=== PATIENT | male | born 1975 | race Caucasian/White ===

== ENCOUNTER 2017-03-19 09:15 | Inpatient (IN) | payer MEDICARE ==
[2017-03-19] VITALS (15 sets, daily range): BP systolic 122–166; BP diastolic 62–88; PULSE 61–86; RESP 14–19; O2SAT 95–99
[~2017-03-19] VITALS: Ht 177.8 cm; Wt 82.4 kg
--- NOTE | 2017-03-19 09:19 | ED.REPORT ---
HPI-General Illness Date of Service Mar 19, 2017 ED Provider: The patient is a 41 year old male with history of anxiety, depression, and chronic back pain s/p multiple surgeries, who was sent to the emergency department by Dr. Paul for an abnormal rhythm. The patient is currently undergoing evaluation by Dr. Paul for syncope. He has recently been wearing a Holter Monitor. He sent his recordings this morning and shortly after was contacted by Dr. Paul who directed him to come to the emergency department. Dr. Paul called prior to the patient's arrival reporting the patient had an episode Torsades de pointe on the recording. The patient did not notice any symptoms last night. He did have an episode 2 days ago where he was very lightheaded, weak, nauseous, and diaphoretic. He had to lay on the floor in a dressing room for 45 minutes before he was able to get up and drive home. During the episode he noticed that his pulse was very low. Over the last several days the patient has noticed extreme fatigue. He denies any chest pain or palpitations. He denies family history of sudden cardiac . He is currently taking citalopram 20 mg daily and lamotrigine. He was previously taking propranolol and tizanidine but stopped taking these because he thought it was causing some of his symptoms. Nursing Notes Stated Complaint: HEART MONITOR, IRREGULAR HEART RHYTHM Nursing Notes Reviewed: Yes Allergies: Coded Allergies: diphenhydramine (Verified Allergy, Mild, panic, 03/19/17) anxiety Uncoded Allergies: FLOROQUINOLONES (Allergy, Severe, 03/19/17) Jens ceballos. never taken Scheduled Citalopram (Citalopram) 20 Mg Tablet 20 MG PO HS Lamotrigine (Lamotrigine) 25 Mg Tablet 25 MG PO DAILY Lamotrigine (Lamotrigine) 25 Mg Tablet 50 MG PO HS Trazodone (Trazodone) 50 Mg Tablet 50 MG PO HS Scheduled PRN Albuterol Sulfate (Ventolin HFA Inhaler) 200 Puff/18 Gm Inhaler 2 PUFF PRN For Shortness of Breath Cyclobenzaprine (Cyclobenzaprine) 10 Mg Tablet 10 MG PO PRN muscle spasms oxyCODONE (oxyCODONE) 5 Mg Tablet 5 MG PO Q4Hrs PRN PRN For Pain General Time Seen by MD: 09:19 Chief Complaint Other (abnormal rhythm) Hx Obtained From: Patient, Spouse Arrived By: Walk-in Sudden in Onset?: Yes Symptom Duration: 1 - 15 minutes Severity: Current: No pain currently Severity: Maximum: No pain Recent Healthcare: No recent hospitalization, Recent doctor visit, Prior workup Similar Sx Previous: Yes Past Medical History Past Medical History Chronic back pain Anxiety Depression Past Surgical History Multiple back surgeries Neck surgery Family History Noncontributory Smoking History Never Smoker Social History Alcohol Use: Denies alcohol use Drug Use: THC Other Social History: Good social support, Local resident Ambulatory Status Independent Review of Systems +bradycardia Full Review of Systems Constitutional: Reports: Fatigue, Weakness - generalized Cardiovascular: Denies: Chest pain, Palpitations GI: Reports: Nausea Skin: Reports Diaphoresis Neurologic: Reports: Lightheaded, Syncope Complete sys rev & neg: except as marked. Physical Exam Vital Signs Vital Signs Date Time Temp Pulse Resp B/P Pulse Ox O2 Delivery O2 Flow Rate FiO2 03/19/17 12:31 77 17 140/72 97 Room Air 03/19/17 11:09 73 16 151/70 96 Room Air 03/19/17 09:21 77 14 166/81 99 Room Air Initial VS: Reviewed Head / Eyes: Atraumatic, Normocephalic, PERRL ENT: Mucous membranes moist, Conjunctiva normal, No scleral icterus Respiratory: Breath sounds normal, Clear to auscultation, No respiratory distress Cardiovascular: Regular rate & rhythm, Heart sounds normal, Intact distal pulses Abdomen / GI: Soft, Non-tender, No guarding, No rebound, No distention Lymphatic: No lymphadenopathy Extremities: Vascular intact, Neuro intact, No swelling, No tenderness Skin: Warm, Dry, No cyanosis Neurologic: Alert, Oriented, Nonfocal Psychiatric: Mood/affect normal, Behavior normal, Normal thought content General/Constitutional: Awake, Alert, No acute distress, Cooperative Neck: Atraumatic, Supple, No meningismus, Full range of motion, No swelling, Non-tender, No masses, No JVD Lower Extremity / Pelvis / MS: Neurologic intact, Vascular intact, No edema Interpretation & Diagnostics Lab Results Interpretation Result Diagram: 03/19/1728 03/19/17 0928 Test 03/19/17 09:28 03/19/17 11:34 White Blood Count 7.8th/mm3 (3.8-10.1) Red Blood Count 4.85mil/mm3 (4.40-5.80) Hemoglobin 14.9g/dL (13.8-17.2) Hematocrit 43.2% (41.0-50.0) Mean Corpuscular Volume 89.1fL (81-100) Mean Corpuscular Hemoglobin 30.7pg (27.0-35.0) Mean Corpuscular Hemoglobin Concent 34.5% (32.0-37.0) Red Cell Distribution Width 12.9% (12.3-15.4) Platelet Count 207bil/L (150-400) Neutrophils (%) (Auto) 60.1% (40-74) Lymphocytes (%) (Auto) 23.8% (14-46) Monocytes (%) (Auto) 12.9% (4-12) Eosinophils (%) (Auto) 2.7% (0-5) Basophils (%) (Auto) 0.4% (0-3) Sodium Level 140mEq/L (134-144) Potassium Level 3.8mEq/L (3.5-5.2) Chloride Level 102mEq/L (97-108) Carbon Dioxide Level 23mmol/L (18-29) Blood Urea Nitrogen 21mg/dL (6-20) Creatinine 1.03mg/dL (0.76-1.27) Estimat Glomerular Filtration Rate 85mL/min (>59) Glucose Level 92mg/dL (60-99) Calcium Level 9.7mg/dL (8.5-10.1) Magnesium Level 2.2mg/dL (1.6-2.6) Total Bilirubin 0.3mg/dL (0.0-1.2) Aspartate Amino Transf (AST/SGOT) 24U/L (0-50) Alanine Aminotransferase (ALT/SGPT) 15U/L (0-44) Alkaline Phosphatase 65U/L (25-150) Troponin T 0.010ug/L (0.0-0.011) Pro-B-Type Natriuretic Peptide 19.16pg/mL (0-86) Total Protein 7.6g/dL (6.4-8.4) Albumin 4.6g/dL (3.4-5.0) Thyroid Stimulating Hormone (TSH) 3.210uIU/mL (0.450-4.500) Hold Urine Received (Received) ECG Interpretation ECG Interpretation: Normal sinus rhythm with a rate of 84 QTc 453 Time: 09:23 Interpreted by: ED physician X-Ray Chest Interpretation Chest Xray Interpretation: IMPRESSION: No acute disease Dictated by: Deni Smith M.D. on 03/19/2017 at 9:52 Interpretation / Wet Read by: Interpret - Radiologist Re-Eval/Medical Decision Med Decision/Clinical Course Patient presents to the ER after reportedly having an episode of polymorphic ventricular tachycardia at home as documented on a Holter monitor. Patient is currently asymptomatic but upon arrival he is brought to a major medical room, IV, telemetry monitoring and defibrillator pads are placed. Cardiology is promptly at the bedside and has evaluated the patient. The patient will be taken to the laborer drying department this afternoon. Source of Hx: Old records, Family, Private physician Time of Eval: 09:28 Re-Evaluation/Progress Note: Dr. Paul is here to evaluate the patient. Consultation : Referral / Consult Name: Angel Paul MD Consulted With: Cardiology Call Returned at: 09:40 Electric Freight Car Operator: Agrees with eval, Agrees with plan, Requested laborer drying department, Accepts admit Note: Will take the patient to the laborer drying department at 1500 today. Counseled Regarding: Diagnosis, Lab results, Need for admission Discharge & Departure Primary Impression: Torsades de pointes Disposition: ADMITTED TO HOSPITAL (To laborer drying department) Discharge Condition All VS Reviewed: Yes Condition: Stable Referrals: Angel Paul MD Scribe Attestation Portions of this note were transcribed by Soni Chicas. I, Dr. Marquez personally performed the history, physical exam and medical decision-making; I reviewed and confirmed the accuracy of the information in the transcribed note. Signed by: Nicanor Valenzuela, 03/19/17 at 1035. copies to: Angel Paul MD, Timothy S DO Mar 19, 2017 09:19 Soni Chicas Mar 19, 2017 09:29
[2017-03-19 09:39] LABS: BASOPHILS % (AUTO) 0.4 % (0-3); EOSINOPHILS % (AUTO) 2.7 % (0-5); MONOCYTES % (AUTO) 12.9 % (4-12); Mean Corpuscular Hemoglobin 30.7 pg (27.0-35.0); Mean Corpuscular Volume 89.1 fL (81-100); NEUTROPHILS % (AUTO) 60.1 % (40-74); Platelet Count 207 bil/L (150-400)
--- NOTE | 2017-03-19 09:55 | DRSVH ---
PROCEDURE: X-RAY CHEST ONE VIEW, PORTABLE ([id number]) INDICATIONS: arrhythmia TECHNIQUE: One view of the chest was acquired. COMPARISON: None. FINDINGS: Surgical changes and devices: None. Lungs and pleura: No pleural effusions or pneumothorax. Lungs are clear. Mediastinum: Mediastinal contours appear normal. Heart size is normal. Bones and chest wall: No suspicious bony lesions. Overlying soft tissues appear unremarkable. IMPRESSION: No acute disease Dictated by: Deni Smith M.D. on 03/19/2017 at 9:52 Approved by: Deni Smith M.D. on 03/19/2017 at 9:53
[2017-03-19] MEDS ORDERED: LORazepam 1 mg Tablet PO ONE (10:05)
[2017-03-19 10:11] LABS: TROPONIN T 0.01 ug/L (0.0-0.011)
[2017-03-19] MEDS ORDERED: ALBU18HF (10:21)
[2017-03-19] MEDS ORDERED: LAMO25TA PO ×2 (10:21→10:23)
[2017-03-19] MEDS ORDERED: CITA20TA11 PO (10:21)
[2017-03-19 10:22] LABS: Magnesium 2.2 mg/dL (1.6-2.6)
[2017-03-19] MEDS ORDERED: TRAZ-115 PO (10:23)
[2017-03-19] MEDS ORDERED: OXYC5TAB72 PO (10:23)
[2017-03-19] MEDS ORDERED: CYCL10TA9 PO (10:24)
[2017-03-19] MEDS ORDERED: Ondansetron 2 mg/mL 2 mL Inj IVPUSH PRN ×2 (10:25→14:30)
[2017-03-19] MEDS ORDERED: 0.9% Sodium Chloride 1,000 ML IV ONE (11:54)
[2017-03-19] MEDS ORDERED: Heparin 1,000 Units/500 mL NS Premix IV ONE (13:31)
[2017-03-19] MEDS ORDERED: Heparin 10,000 Unit/1,000 mL NS Premix IV ONE (13:31)
[2017-03-19] MEDS ORDERED: fentaNYL-PF 50 mCg/mL 2 mL Inj ONE (13:44)
[2017-03-19] MEDS ORDERED: Atropine 1 mg/10 mL (Code) Syringe ONE (14:08)
[2017-03-19] MEDS ORDERED: 0.9% Sodium Chloride 250 ML IV PRN (14:26)
[2017-03-19] MEDS ORDERED: 0.9% Sodium Chloride 1,000 ML IV PRN (14:26)
[2017-03-19] MEDS ORDERED: Ondansetron 2 mg/mL 2 mL Inj ONE (14:27)
[2017-03-19] MEDS ORDERED: Atropine 1 mg/10 mL (Code) Syringe IVPUSH PRN (14:30)
[2017-03-19] MEDS ORDERED: HYDROcodone-APAP 5-325 mg Tablet PO PRN (14:30)
--- NOTE | 2017-03-19 15:27 | CS94 ---
[address] [address] DIAGNOSTIC CARDIAC CATHETERIZATION PATIENT: ELLIOTT PERERA : 1975 MR#: [id number] ADMIT: 03/19/2017 JOB ID: [id number] SERVICE DATE: 03/19/2017 PROCEDURE: 1. Retrograde left heart catheterization. 2. Selective left and right coronary angiography. 3. Left ventricular hemodynamics. INDICATION: Syncope, polymorphic VT. CONSENT: The patient was explained the risks, benefits, and alternatives of the procedure. Informed signed consent was obtained and placed in the chart. PROCEDURE: The patient was brought to the cath laboratory and placed on the cath table. Both groins were prepped and draped in the usual sterile manner. One percent lidocaine was infiltrated in the right groin area. A micropuncture needle was used to access the right femoral artery. Using standard technique a 6-Syriac arterial sheath was placed in the right femoral artery. Subsequently FL4 catheter was used to engage the left main coronary artery. Left coronary angiography was performed. Coronary angiography was performed. Patient became extremely bradycardic with a heart rate of 20 and a long pause. The catheter was withdrawn. Patient was asked to cough and he regained his baseline heart rate of sinus rhythm. Rare PVCs were noted at that time. Similarly, FR4 catheter was used to engage the right coronary artery. Multiple views of the right coronary were obtained in multiple projections. A pigtail catheter was advanced over the guidewire, placed in the left ventricle. Left ventricular hemodynamics was obtained. A pullback maneuver was performed to assess for any gradient between the left ventricle and aorta. Subsequently, right groin angiography was performed. A StarClose closure device was deployed successfully. The patient was taken out of the cath laboratory in stable condition. COMPLICATIONS: Transient sinus bradycardia with contrast injection. BLOOD LOSS: Less than 10 cc. HEMODYNAMICS: The left ventricular end-diastolic pressure was 12-15 mmHg. There was no left ventricular aortic gradient. CORONARY ANGIOGRAPHY: The left main coronary artery is angiographically normal. The LAD and the branches of the LAD are angiographically normal. The left circumflex coronary artery is angiographically normal. The right coronary artery is a dominant vessel and is angiographically normal. IMPRESSION: 1. Angiographically normal coronaries. 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 2. Left ventricular end-diastolic pressure within normal limits. MTDD
[2017-03-19] MEDS ORDERED: Alum-Mag Hydrox-Simeth 30 mL Suspension PO PRN (16:10)
[2017-03-19] MEDS: Sodium Chloride LOK Flush 10 mL Syringe IVFLUSH SCH (16:30)
--- NOTE | 2017-03-19 16:40 | NUR ---
admit [facility] pt arrived on [facility] accompanied by family/friend with all belongings, on RA, IV infusing, back pain 02/13, A&Ox3. Care continues
--- NOTE | 2017-03-19 16:46 | NUR ---
NIECY PT RECEIVED FROM AFTER SCHOOL PROGRAM COORDINATOR AT 1500. RIGHT GROIN WITH STARCLOSE AND OPSITE, GAUZE DRSG HAS REMAINED SOFT, NON TENDER, NO BLEEDING OR HEMATOMA NOTED. PT IS AWARE OF ACTIVITY RESTRICTIONS AND BEDREST. RIGHT D/P 2+. NS AT 100ML/HR AND PT IS TAKING PO FLUIDS AND MEAL WITHOUT DIFFICULTY. PT AND HIS NURSING CARE WERE TRANSFERRED TO ROOM 3008 AT 1630. RN TO RN BEDSIDE HAND OFF WAS DONE WITH EMELI Goel RN. TELE PLACED AND CONFIRMED WITH SENIOR JAVA UI DEVELOPER.
--- NOTE | 2017-03-19 18:06 | HP ---
[address] [address] HISTORY AND PHYSICAL PATIENT: ELLIOTT PERERA : 1975 MR#: [id number] ADMIT: 03/19/2017 JOB ID: [id number] HISTORY OF PRESENT ILLNESS: The patient is a delightful 41-year-old male who was referred to our office on February 17, 2017 for evaluation of syncope. He saw Dr. Paul. The patient complained of feeling lightheaded and having palpitations prior to his syncopal episodes. The symptoms began about one month prior to his first appointment. They lasted approximately 15 seconds and seemed to occur intermittently. He noted at the that the symptoms typically occurred when bending forward. Associated symptoms included visual changes. The patient does not report a history of alcoholism, history of coronary artery disease, confusion, congenital heart disease, dilated cardiomyopathy, drug abuse, fatigue, head trauma, headaches, ischemic cardiomyopathy, myocardial infarction, seizure-like activity, slurred speech, or history of stroke and weakness. He notes his visual changes are in the right eye. He has a history of Radha-Danlos syndrome. Given his symptoms, Dr. Paul ordered a 30-day event monitor. That study revealed that he was having episodes of torsades de Pointe, which is a life-threatening arrhythmia. As such Dr. Paul advised him to go to the emergency department at [facility] where he was admitted to the hatchery laborer to evaluate the state of his coronary arteries. A left heart catheterization was done. That study revealed that his coronary arteries were clean. After the left heart catheterization was completed, it was decided that he would be admitted to the hospital for evaluation and observation. REVIEW OF SYSTEMS: The patient reports he has gained weight recently. He is positive for visual changes, particularly in the right eye. He also reports lightheadedness, decreased sensation, numbness in the extremities, muscle weakness, and syncope. He is negative for fatigue and weakness. Negative for confusion, headache, seizure-like activity, slurred speech, or seizures. He reports he has chronic joint and back pain and joint deformity, muscle cramps, and muscle spasms, for which he takes pain medications. PHYSICAL EXAMINATION: When I evaluated the patient he was alert and oriented and well nourished, well developed physique. His eyes were bilaterally normal. Conjunctivae were bilaterally normal. Sclerae bilaterally normal. Corneas bilaterally normal. Pupils were bilaterally equal and reactive to light. The irises were bilaterally normal. On inspection of the neck, the neck was normal to palpation and inspection. There are no masses in the area of the thyroid. There was no jugular vein distention. Auscultation of lungs revealed the lungs were clear bilaterally. Equal bilateral lung sounds. There are no wheezes or rhonchi, and rales were absent. Auscultation of the heart revealed normal S1 and S2, without murmurs, clicks, or rubs. The abdomen was soft and nontender. Skin was warm and dry. There is no overall muscle deformity that I could see. MEDICATIONS: 1. Cyclobenzaprine 10 mg tablets, one tablet three times every day. 2. Lexapro 10 mg tablets, one tablet every day. 3. Zofran one 4 mg tablet, repeated every 30 minutes as needed for nausea. 4. Hydrocodone 5 mg tablets every two days as needed for pain. 5. Trazodone 50 mg tablets, one tablet at bedtime to help him sleep. 6. Ventolin HFA 90 mcg actuation aerosol inhaler, two puffs every 4-6 hours as needed for shortness of breath. ALLERGIES: CIPROFLOXACIN, DIPHENHYDRAMINE, AND GABAPENTIN. FAMILY HISTORY: There is no relevant family history. SOCIAL HISTORY: The patient does not smoke. He drinks moderate amounts of alcohol. He denies any use of recreational drugs. ASSESSMENT AND PLAN: Torsades de Pointe. The patient has a history of syncopal episodes. Thirty day event monitor revealed that he has Torsades de Pointe which is a life-threatening arrhythmia. At this point that it is important that he remain off of his home medications because those medications may cause long QT syndrome which can facilitate the arrhythmia. Dr. Ellison will evaluate the patient and he will make recommendations. For now he will stay overnight in the hospital until Dr. Ellison evaluates the patient and makes recommendations.
[2017-03-19 18:39] LABS: Magnesium 2.1 mg/dL (1.6-2.6)
[2017-03-20] VITALS (8 sets, daily range): BP systolic 119–145; BP diastolic 74–99; PULSE 57–74; RESP 16–18; O2SAT 94–99
[2017-03-20] MEDS: Sodium Chloride LOK Flush 10 mL Syringe IVFLUSH SCH ×3 (00:11→16:30)
--- NOTE | 2017-03-20 05:57 | NUR ---
pain: pt c/o pain in incision site in right groin, and back. pt medicated with prn oxycodone and prn morphine. pt able to report some relief. Tele SR barragan. will continue to monitor.
--- NOTE | 2017-03-20 11:29 | PROG NOTE ---
[address] [address] PROGRESS NOTE PATIENT: ELLIOTT PERERA : 1975 MR#: [id number] ADMIT: 03/19/2017 JOB ID: [id number] DATE: 03/20/2017 SUBJECTIVE: This is hospital day two, after being admitted for the evaluation and treatment of torsades de pointes and after having a left heart catheterization done. The patient is resting comfortably. There have been no concerning arrhythmias. Vital signs are stable. Lungs are clear to auscultation. Auscultation of the heart reveals normal S1 and S2 without murmurs, clicks or rubs. Abdomen is soft and nontender. The catheter entry site of the right groin is tender to palpation. However, the site is clean, dry and intact without signs of infection. There is no bleeding. The lower extremities are warm and dry. There are 2+ dorsalis pedis and posterior tibialis pulses bilaterally. ASSESSMENT AND PLAN: The patient will be n.p.o. Wednesday night. An implantable cardiac defibrillator will be put in place on Wednesday.
--- NOTE | 2017-03-20 15:45 | NUR ---
Social Work Note - Initial Assessment Jc River is a 41 yr old admitted for irregular heart rhythm. EMR reviewed: Pt has Medicare insurance, his PCP Dr Contreras. No LTC no [facility]. Readmit score is 2. See attached initial assessment. SECURITIES BROKER met with pt - introduced d/c planning and explained SW role. Pt lives at home in [place] with a room mate. He is independent at baseline, no DME use. He states that he is going to have an ICD placed on Wednesday. He hopes to return home with his room mate and anticipates that he will continue at his previous level of functioning. Pt denies any needs. Pt does not have DPOA - SECURITIES BROKER provided paperwork as well as a D/C planning checklist. SECURITIES BROKER will follow if needs arise. Plan: Home with family in [facility]. No needs identified. BRADLY James Addendum: 03/20/17 at 1552 by TEO ESTRADA SS Amended: Links added.
[2017-03-20] MEDS: Polyethylene Glycol (PEG) 17 Gm Powder PO PRN (21:05)
[2017-03-21] VITALS (9 sets, daily range): BP systolic 116–139; BP diastolic 75–89; PULSE 64–89; RESP 18; O2SAT 95–98
[2017-03-21] MEDS: Sodium Chloride LOK Flush 10 mL Syringe IVFLUSH SCH ×3 (00:39→16:25)
--- NOTE | 2017-03-21 10:42 | PROG NOTE ---
[address] [address] PROGRESS NOTE PATIENT: ELLIOTT PERERA : 1975 MR#: [id number] ADMIT: 03/19/2017 JOB ID: [id number] DATE: 03/21/2017 SUBJECTIVE: This is hospital day 3 after being admitted for evaluation and treatment of torsades de Pointe. The patient is resting comfortably. There were no concerning arrhythmias in the last 24 hours. PHYSICAL EXAMINATION: Last blood pressure was 136/88, pulse is 89, respirations 18, SpO2 is 97% on room air. Lungs are clear to auscultation bilaterally. Auscultation of heart reveals normal S1 and S2 without murmurs, clicks, or rubs. Abdomen is soft, nontender, and the catheter entry site after his left heart catheterization is tender to palpation, however the site is clean, dry, and intact without signs of infection. There is no bleeding. Lower extremities are warm and dry. There is +2 pulses at the dorsalis pedis and posterior tibialis arteries bilaterally. ASSESSMENT AND PLAN: The patient will be n.p.o. tonight. An implantable cardiac defibrillator will be put in place on Wednesday.
--- NOTE | 2017-03-21 11:31 | NUR ---
Social Work Note - Multidisciplinary rounds Per Rounds - Pt is scheduled for cardiac intervention tomorrow. Pt will remain in the hospital for 1-2 more days after placement. AGRICULTURAL TECHNICAL OFFICER will continue to follow. BRADLY James
--- NOTE | 2017-03-21 11:31 | NUR ---
CODING SUPPORT SPECIALIST witnessed [facility]'s signature LJ JamesSW
--- NOTE | 2017-03-21 14:36 | NUR ---
Pain Patient had complaints of 4/10 pain to back and groin area. Patient was offered pain medication. Patient agreed. Patient administered Roxicodone PRN as ordered. Pain medication was effective and decreased pain to 2/10 when reassessed 20 minutes later.
[2017-03-21] MEDS: Polyethylene Glycol (PEG) 17 Gm Powder PO PRN (19:38)
[2017-03-22] VITALS (15 sets, daily range): BP systolic 116–136; BP diastolic 54–89; PULSE 59–78; RESP 10–25; O2SAT 95–98
[2017-03-22] MEDS: Sodium Chloride LOK Flush 10 mL Syringe IVFLUSH SCH ×3 (00:30→17:14)
--- NOTE | 2017-03-22 05:09 | NUR ---
NOC/NPO Explained plan to be NPO after midnight for the upcoming defibrilator implant. Pt verbalizes understanding. Denies any chest pain, sob. Has been having moderate back and abd pain but is controlled with morphine. Will continue to monitor.
[2017-03-22] MEDS ORDERED: 0.9% Sodium Chloride 250 ML ONE (11:58)
[2017-03-22] MEDS ORDERED: Heparin 10,000 Unit/1,000 mL NS Premix IV ONE (11:58)
[2017-03-22] MEDS ORDERED: Bupivacaine-MPF 0.5% 30 mL Inj ONE (11:58)
[2017-03-22] MEDS ORDERED: 0.9% Sodium Chloride 1,000 ML ONE (11:58)
--- NOTE | 2017-03-22 12:23 | NUR ---
off floor pt transported to lab support technician for ICD placement. pt transported in bed with dog and roommate. teletypesetter monitor notified. pt premedicated with Oxycodone and Lorazepam. Two IVs in place and pt has gone to the bathroom.
[2017-03-22] MEDS ORDERED: Vancomycin 1,000mg/200 mL NS IV ONE ×2 (12:30→12:41)
[2017-03-22] MEDS ORDERED: fentaNYL-PF 50 mCg/mL 2 mL Inj ONE ×3 (12:43→13:14)
[2017-03-22] MEDS ORDERED: Water for Injection 50 ML IV ONE (12:54)
[2017-03-22] MEDS ORDERED: Vancomycin 1,000 mg Inj ONE (12:54)
[2017-03-22] MEDS ORDERED: Methohexital 10 mg/mL 50 mL Inj ONE (13:40)
[2017-03-22] MEDS: 0.9% Sodium Chloride 1,000 ML IV SCH (14:09)
--- NOTE | 2017-03-22 14:15 | NUR ---
POST PROCEDURE NOTE RECEIVED FROM COTTON TIPPER. SEE FLOW SHEETS
--- NOTE | 2017-03-22 14:42 | DRSVH ---
PROCEDURE: X-RAY CHEST ONE VIEW, PORTABLE ([id number]) new leads placed TECHNIQUE: One view of the chest was acquired. COMPARISON: [facility], CR, XR CHEST 1VW (PORTABLE), 03/19/2017, 9:18. FINDINGS: Surgical changes and devices: Dual-lead cardiac pacer placed in the interval since the prior examinat ion. Lungs and pleura: No pleural effusions or pneumothorax. Lungs are clear. Mediastinum: Mediastinal contours appear normal. Heart size is normal. Bones and chest wall: No suspicious bony lesions. Overlying soft tissues appear unremarkable. IMPRESSION: Status post placement of cardiac pacer. Dictated by: Janene Sanabria MD, PhD on 03/22/2017 at 14:39 Approved by: Janene Sanabria MD, PhD on 03/22/2017 at 14:40
--- NOTE | 2017-03-22 15:18 | PROG NOTE ---
[address] [address] PROGRESS NOTE PATIENT: ELLIOTT PERERA : 1975 MR#: [id number] ADMIT: 03/19/2017 JOB ID: [id number] DATE: 03/22/2017 IDENTIFICATION: The patient is a pleasant, 41-year-old man with a structurally normal heart by echocardiography and normal epicardial coronary artery disease by recent angiography. He was admitted to the hospital late last week when his 30-day event monitor showed self-terminating but persistent torsade. He was being evaluated by Dr. Paul as an outpatient for repeated syncopal episodes, which he sustained at home, unprovoked, and without antecedent symptoms. He ultimately had an echocardiogram which returned normal and EKGs which were unremarkable in terms of intervals. He had sinus rhythm with normal intervals and no QT prolongation. He therefore wore a 30-day event monitor and on monitor was called in from home due to two episodes of torsade that lasted several seconds but ultimately self-terminated. In the hospital, he underwent coronary angiography which failed to reveal any significant epicardial disease. I am being asked to comment on secondary prevention of cardiac arrest. He feels well but he has had multiple syncopal and near-syncopal episodes in the last few months. He has Radha-Danlos syndrome. He has no evidence of vascular involvement. He denies any chest pain, pressure, discomfort. His episodes occurred at home and were not preceded with any chest pain, pressure, discomfort, dyspnea or palpitations. IMPRESSION/RECOMMENDATION: The patient is a pleasant, 41-year-old man with a structurally normal heart, identified to have torsade de pointes with repeat syncopal episodes. I recommended secondary prevention implantable cardioverter-defibrillator implant. I discussed the implant with him and his significant other at length including risks and benefits. Ultimately, he wishes to proceed. PLAN: Dual-chamber ICD implantation with defibrillation threshold testing. Thank you very much for allowing me to participate in the care of this patient. Please call with any questions. I spent 1 hour with the patient coordinating care, reviewing his chart. Greater than 50% of the time was spent in counseling.
--- NOTE | 2017-03-22 16:15 | NUR ---
TRANSFERED TO [facility] [place] [place], REPORT GIVEN
--- NOTE | 2017-03-22 16:34 | NUR ---
back from ICD placement pt states that he is having slight pain at the surgical site 11/13. He would like to wait for pain medication. pt also states that he is feeling a little nauseated and asks for crackers and 7-up. pt will call when he would like pain medication.
--- NOTE | 2017-03-22 22:21 | OP ---
[address] [address] OPERATIVE REPORT PATIENT: ELLIOTT PERERA : 1975 MR#: [id number] ADMIT: 03/19/2017 JOB ID: [id number] DATE OF SURGERY: 03/22/2017 PREOPERATIVE DIAGNOSIS(ES): 1. Torsade de Pointe. 2. Syncope. POSTOPERATIVE DIAGNOSIS(ES): 1. Torsade de pointe. 2. Syncope. PROCEDURES PERFORMED: 1. Dual-chamber implantable cardioverter-defibrillator implantation. 2. Defibrillation threshold testing (induction of ventricular fibrillation via device). 3. Fluoroscopy. SURGEON: Iban Ellison MD. PROJECT SPECIALIST: Carrillo Sullivan. IMPLANTED DEVICE: 1. [employer] pulse generator, model CD 2411, 36 q, serial #[id number]. 2. Right atrial lead [employer] 2088 TC 52 cm, serial #[id number]. 3. RV lead [employer] , 4712 Q, 58 cm, serial #[id number]. ANESTHESIA: Bolus dosing of Versed and fentanyl were utilized for an appropriate level of sedation and Brevital was utilized for defibrillation threshold testing. INDICATION: The patient is a pleasant 41-year-old man with a structurally normal heart admitted with syncope and torsade de pointe without reversible cause. After discussion of risks and benefits of ICD implantation for secondary prevention of cardiac arrest, he opted to proceed. PROCEDURAL DESCRIPTION: Following informed consent, the patient was taken to the EP laboratory in a fasting, nonsedated state where he was prepped in usual sterile fashion. The left infraclavicular region was infiltrated with 40 cc of a 50/50 mixture of bupivacaine and lidocaine. Once adequate anesthesia had been achieved, a 3 cm transverse incision without complications was performed 2 cm below the left clavicle. Dissection was carried down to the pectoralis fascia and a pocket was then fashioned using a combination of electrocautery and blunt dissection. Once adequate anesthesia had been achieved, access was gotten to the left axillary vein over the first rib twice with a micropuncture needle to deploy two 0.035, 3 mm J guidewires. Over the first of these, a 7-[place] tear-away sheath was advanced. Once the guidewire was removed, an active fixation lead was advanced to the RV outflow tract and ultimately the RV apex. The lead was affixed in position using associated active fixation screw. It was connected to the external analyzer and demonstrated appropriately sensed R waves, impedance. Capture threshold was checked to 10 V and there was no evidence of diaphragmatic stimulation. Attention was now placed on his right atrial lead. Over the other previously deployed J guidewire, a 6-[place] tear-away sheath was advanced. Once the guidewire was removed, an active fixation lead was advanced to the right atrial appendage. It was affixed in position using associated active fixation screw and was connected to the external analyzer and demonstrated appropriately sensed P waves, impedance. Capture threshold was checked to 10 V and there was no evidence of diaphragmatic stimulation. Once the position and redundancy of both leads had been confirmed in multiple fluoroscopic views, the leads were anchored to the prepectoralis fascia using the associated anchoring sleeves and two Ethibond sutures. The pocket was then copiously irrigated with antibiotic solution. The leads were connected to a generator, the generator was placed in the pocket and affixed to the floor of the pocket using 1-0 Ti-Cron suture. The incision was then closed with running layers of absorbable suture. The wounds was dressed with skin adhesive and small dressing. At the end of the procedure, the needle, sponge and instrument counts were all correct. Defibrillation threshold testing was performed next. After adequate sedation with Brevital, the patient was placed into ventricular fibrillation with the DC protocol on the [employer] programmer to induce VF at a cycle length of 150 msec. The device sensed appropriately, converting the patient to atrial fibrillation with a 25 joule shock. Charge time was 5 seconds. Impedance was 69 ohms. The atrial fibrillation did not terminate. As such, the patient was converted back to sinus rhythm with an external 200 joule biphasic synchronized shock after confirmation of adequate sedation. COMPLICATIONS: None. ESTIMATED BLOOD LOSS: Negligible. DEVICE MEASURED DATA: Right atrial lead greater than 5 mV, 7 and 10 ohms, 0.5 V at 0.5 msec. RV lead 11.7 mV, 630 ohms, 0.75 V at 0.5 msec. FINAL PROGRAM PARAMETERS: 1. DDD 60-130 beats per minute. 2. VF zone at 200 beats per minute with ATP during charge from max output shocks. 3. VT monitor zone at 150 beats per minute. 4. VT 1 zone at 180 beats per minute with ATP followed by shocks. IMPRESSION: Successful dual-chamber implantable cardioverter-defibrillator implantation. PLAN: 1. Stat portable chest x-ray. 2. PA and lateral chest x-ray in morning. 3. Device interrogation. 4. IV vancomycin through tomorrow. 5. Doxycycline 100 mg p.o. daily x7 days. 6. Wound check in one week. ATTENDING STATEMENT: Iban Ellison M.D., electrophysiology attending, discussed and was present for and supervised/performed all aspects of this procedure.
[2017-03-23] MEDS: 0.9% Sodium Chloride 1,000 ML IV SCH (00:09)
[2017-03-23 00:30] VITALS: BP 155/83; PULSE 61; RESP 18; O2SAT 98
[2017-03-23] MEDS ORDERED: Vancomycin Inj 1,000 MG in IV Premix 1 EACH IV ONE (02:10)
[2017-03-23] MEDS: Sodium Chloride LOK Flush 10 mL Syringe IVFLUSH SCH ×2 (02:13→08:30)
--- NOTE | 2017-03-23 04:13 | NUR ---
Pain Pt has been having pain on surgical site 01/13. Administered oxicodone and morphine for pain control. IV ABx administered as scheduled. Oral fluid intake encouraged. Telemetry monitoring A-paced 65. No sob or nausea, and has been afebrile. Will continue to monitor.
[2017-03-23 04:27] VITALS: BP 113/70; PULSE 63; RESP 18; O2SAT 97
--- NOTE | 2017-03-23 09:37 | PCM.DIMED ---
Discharge Instructions Date of Service Mar 23, 2017 Dates of Hospitalization Mar 19, 2017 at 17:26 Diet Discharge Diet: Heart Healthy Activity Discharge Activity: Other (Keep incision dry one day. Do not extend left elbow high above shoulder for one month. Do not lift, push or pull more than 10 lbs with the left arm for one month.) Call your provider Call your provider for: Fever or Chills, Bleeding, Excessive diarrhea, Other ( Fainting or near fainting.) Patient Instructions Follow-up Provider: Angel Paul MD Follow-up with PCP in: 6 weeks Provider: Iban Ellison MD Follow-up in: 1 week ([facility] office should be calling you with an appt. for device check and would check in 1 week. Call [phone] if you do not hear from them.) Carl Huerta PA-C Mar 23, 2017 09:37
--- NOTE | 2017-03-23 10:00 | DRSVH ---
PROCEDURE: X-RAY CHEST, TWO VIEWS ([id number]) INDICATIONS: For new lead placement TECHNIQUE: 2 views of the chest were acquired. COMPARISON: [facility], CR, XR CHEST 1VW (PORTABLE), 03/22/2017, 14:31. FINDINGS: Surgical changes and devices: Left chest wall AICD is redemonstrated with the leads projecting over t he right atrium and ventricle. Lungs and pleura: No pleural effusions or pneumothorax. Lungs are clear. There is elevation of the right hemidiaphragm Mediastinum: Mediastinal contours are normal. Heart size is normal. Bones and chest wall: No suspicious bony abnormalities. Soft tissues appear unremarkable. IMPRESSION: 1. No evidence of pneumothorax. 2. New AICD leads project over the right atrium and ventricle. Dictated by: Farhad Hills M.D. on 03/23/2017 at 9:57 Approved by: Farhad Hills M.D. on 03/23/2017 at 9:58
[2017-03-23] MEDS ORDERED: METO25TA99 PO (10:06)
[2017-03-23] MEDS ORDERED: DOXY100C2 PO (10:06)
--- NOTE | 2017-03-23 10:45 | DIS ---
[address] [address] DISCHARGE SUMMARY PATIENT: ELLIOTT PERERA : 1975 MR#: [id number] ADMIT: 03/19/2017 JOB ID: [id number] DIS: 03/23/2017 REASON FOR ADMISSION: Recurrent syncope with documented torsade de Pointes polymorphic ventricular tachycardia. CHIEF COMPLAINT: Recurrent syncope. BRIEF HISTORY: The patient is a pleasant 41-year-old man with a structurally normal heart by echocardiography and a normal epicardial coronary artery anatomy by recent angiography. He was hospitalized about five days ago when his 30 day ECG event monitor showed self terminating but persistent polymorphic ventricular tachycardia, torsade de pointes tachycardia. He was being evaluated by Dr. Angel Paul as an outpatient for repeated syncopal episodes which occurred at home and seemed unprovoked. His cardiac workup had been normal including EKGs which showed sinus rhythm and normal intervals and no QT prolongation. With the recurrent and multiple syncopal and near syncopal episodes and documented torsade de pointes tachycardia, he was advised to be hospitalized and receive cardioverter-defibrillator. Dr. Iban Ellison evaluated the patient personally and discussed with him the purposes of the defibrillator and the advisability of it. The patient wished to proceed. COURSE IN HOSPITAL: The patient was admitted on March 19, 2017, and cardiac catheterization was performed by Dr. Angel Paul on Wednesday, March 19, 2017. On Wednesday March 22, 2017, the patient was taken to the cath laboratory again where at this time he received a dual-chamber implantable defibrillator without incident. Afterward he was recovered from sedation in the [facility] and then brought up to the [facility] [place] telemetry. In the morning he felt well for discharge home and was ambulatory without difficulty. Chest x-ray showed good lead positions and no pneumothorax. Device evaluation showed excellent capture and sensing thresholds and there had been no occurrences of arrhythmia. The ICD site is closed and dry and there is no hematoma. He felt well for discharge home. DISPOSITION: The patient was discharged home in good condition with a follow up appointment at the [facility] office in one week. He was advised to follow his heart healthy diet and to not extend his left elbow above his shoulder level for one month. He is also asked not to lift, push or pull more than 10 pounds with the left arm for one month. His medication list was reviewed with him after a drug interaction program was used. He was advised against taking combination of citalopram and Zofran because it had a high risk of QT interval prolongation. He is also advised that there is a significant risk with citalopram and trazodone and citalopram and Ventolin. The patient had made up his mind already that he would stop citalopram. DISCHARGE MEDICATIONS: 1. Doxycycline 100 mg daily for one week. 2. Metoprolol succinate 25 mg daily. 3. Ventolin inhaler 2 puffs p.r.n. shortness of breath. 4. Citalopram 20 mg will be discontinued. 5. Cyclobenzaprine 10 mg p.r.n. muscle spasm. 6. Lamotrigine 25 mg q. a.m. 7. Lamotrigine 50 mg q. p.m. 8. Oxycodone 5 mg q.4 h. p.r.n. pain. 9. Trazodone 50 mg q.h.s. FINAL DIAGNOSES: 1. 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 2. Syncope. 3. Radha-Danlos syndrome. 4. Hypertension. 5. Anxiety. MTDD
[2017-03-23 10:48] VITALS: PULSE 95
--- NOTE | 2017-03-23 11:00 | NUR ---
Discharge went over discharge instructions, follow up appointments, RX and gave pt ICD booklet. removed tele and 2 patent IVs. pt left on foot with to car. No s/s of distress at time of dc.
== END 2017-03-23 11:02 | disposition home or self-care (01) | DRG 225 ==
LOC: SED 09:15 → CVL 13:37 → MPC 17:26
PROVIDERS: ADMIT Internal Medicine Cardiovascular Disease; ATTEND Internal Medicine Cardiovascular Disease
PROC: 4A023N7 Measurement of Cardiac Sampling and Pressure, Left Heart, Percutaneous Approach (ICD-10-PCS; 2017-03-19)
PROC: B2111ZZ Fluoroscopy of Multiple Coronary Arteries using Low Osmolar Contrast (ICD-10-PCS; 2017-03-19)
PROC: 0JH608Z Insertion of Defibrillator Generator into Chest Subcutaneous Tissue and Fascia, Open Approach (ICD-10-PCS; principal; 2017-03-22)
PROC: 02HK3KZ Insertion of Defibrillator Lead into Right Ventricle, Percutaneous Approach (ICD-10-PCS; 2017-03-22)
PROC: 02H63KZ Insertion of Defibrillator Lead into Right Atrium, Percutaneous Approach (ICD-10-PCS; 2017-03-22)
DX: I47.2 Ventricular tachycardia (principal); Q79.6 Ehlers-Danlos syndromes; R55 Syncope and collapse; I10 Essential (primary) hypertension; F41.9 Anxiety disorder, unspecified